=== PATIENT | female | born 1970 | race Caucasian/White ===

== ENCOUNTER → 2017-04-23 | Outpatient (CLI) | payer OTHER ==
[~2017-04-23] MED LIST: GASTROGRAFIN SOLUTION 30ML (Q9963) As Ordered ONE; ISOVUE-370 76% 100ML VIAL (Q9967) As Ordered ONE
--- NOTE | 2017-04-24 07:48 | REP ---
CT OF THE ABDOMEN AND PELVIS WITH CONTRAST: CLINICAL: Abdominal pain with history of gastroesophageal reflux. TECHNIQUE: Axial contrast enhanced images from the lung bases to the pubic symphysis using oral (per protocol) and 100 mL Isovue 370 intravenous contrast material with coronal and sagittal reformations. FINDINGS: Lung bases are clear. Visualized heart and pericardium normal. Liver, spleen, pancreas, gallbladder, bilateral adrenal glands and kidneys are normal. The enteric system is without obstruction or acute inflammatory process. The pelvis demonstrates normal bladder and age-appropriate uterus/adnexa. No pelvic free fluid. No adenopathy. No mass lesion. Vasculature appears normal. Surrounding musculoskeletal structures are intact. IMPRESSION: Normal CT of the abdomen and pelvis. No acute abdominal or pelvic pathology appreciated. Signed by Pedro Pablo Hodge MD 04/27/2017 07:11 A
== END ==
LOC: M RAD 04-17 13:10
PROVIDERS: ATTEND Surgery
DX: K21.9 Gastro-esophageal reflux disease without esophagitis (principal)
CPT/HCPCS: 74177; Q9963; Q9967

== ENCOUNTER 2017-06-26 10:53 | Day surgery (SDC) | payer OTHER ==
[2017-06-26] MEDS ORDERED: NEOSTIGMINE 10 MG/10 ML VIAL (J2710) (10:54)
[2017-06-26] MEDS ORDERED: LIDOCAINE 1% MDV 20ML VIAL SQ (11:15)
[2017-06-26] MEDS: LR 1,000 ML IV (11:35)
[2017-06-26 11:38] LABS: URINE PREG TEST NEGATIVE (NEGATIVE)
[2017-06-26 11:39] LABS: CONTROL LINE UCG INT CTR LINE PRESENT
[2017-06-26] MEDS ORDERED: ROCURONIUM BROMIDE 50 MG/5 ML VIAL As Ordered (11:50)
[2017-06-26] MEDS ORDERED: fentaNYL 250 MCG/5 ML INJECTION (J3010) As Ordered (11:50)
[2017-06-26] MEDS ORDERED: PROPOFOL 200 MG/20 ML VIAL As Ordered (11:50)
[2017-06-26] MEDS ORDERED: LIDOCAINE 2% INJ 100 MG/5 ML SDV (FOR ANES.) As Ordered (11:50)
[2017-06-26] MEDS ORDERED: MIDAZOLAM INJ 2 MG/2 ML VIAL (J2250) As Ordered (11:51)
[2017-06-26] MEDS: CEFAZOLIN SOD 1 GM in APPROPRIATE DILUENT 1 EA IV (13:00)
[2017-06-26] MEDS ORDERED: PHENYLephrine HCL 500 MCG/5 ML (100MCG/ML) SYRINGE (J2370) As Ordered (13:13)
[2017-06-26] MEDS ORDERED: dexameTHASONE 4 MG/ML 1ML VIAL (J1100) As Ordered (13:16)
[2017-06-26] MEDS ORDERED: ONDANSETRON 4MG/2ML VIAL (J2405) As Ordered (13:22)
[2017-06-26] MEDS ORDERED: NEOSTIGMINE 10 MG/10 ML VIAL (J2710) As Ordered (13:22)
[2017-06-26] MEDS ORDERED: GLYCOPYRROLATE INJ 0.2 MG/ML 2 ML VIAL As Ordered ×2 (13:22)
[2017-06-26] MEDS ORDERED: ePHEDrine INJ 50 MG/ML VIAL As Ordered (13:30)
[2017-06-26] MEDS: LIDOCAINE W/EPINEPHRINE 1% 20ML VIAL As Ordered (13:55)
[2017-06-26] MEDS: BUPIVACAINE HCL 0.25% 30 ML VIAL As Ordered (13:55)
[2017-06-26] MEDS ORDERED: fentaNYL 100 MCG/2 ML INJECTION (J3010) As Ordered (14:23)
[2017-06-26] MEDS ORDERED: PERCOCET 5MG/325MG TAB As Ordered (14:23)
[2017-06-26] MEDS: fentaNYL 100 MCG/2 ML INJECTION (J3010) IV ×4 (14:25→14:49)
[2017-06-26] MEDS ORDERED: MORPHINE 2 MG/ML 1ML SYRINGE (J2270) IV (14:30)
[2017-06-26] MEDS: PERCOCET 5MG/325MG TAB PO ×2 (14:30→14:59)
[2017-06-26] MEDS ORDERED: LR 1,000 ML IV ×2 (14:30→14:45)
[2017-06-26] MEDS ORDERED: ONDANSETRON 4MG/2ML VIAL (J2405) IV ×2 (14:30→14:45)
[2017-06-26] MEDS ORDERED: NORCO, ANEXSIA 5/325MG TABLET (HYDROcodone/ACETAMINOPHEN) PO (14:30)
[2017-06-26] MEDS ORDERED: KETOROLAC 30 MG/ML VIAL (J1885) IV (14:30)
== END 2017-06-26 16:12 | disposition home or self-care (01) ==
LOC: M SDC 10:53
DX: K82.8 Other specified diseases of gallbladder (principal); K21.9 Gastro-esophageal reflux disease without esophagitis; J45.909 Unspecified asthma, uncomplicated; K58.9 Irritable bowel syndrome, unspecified; S91.309D Unspecified open wound, unspecified foot, subsequent encounter; L70.0 Acne vulgaris; R51 Headache; Z88.1 Allergy status to other antibiotic agents; Z88.6 Allergy status to analgesic agent; Z79.899 Other long term (current) drug therapy; Z86.19 Personal history of other infectious and parasitic diseases; X58.XXXD Exposure to other specified factors, subsequent encounter; Y93.89 Activity, other specified; Y92.89 Other specified places as the place of occurrence of the external cause; Y99.8 Other external cause status
CPT/HCPCS: 47562

== ENCOUNTER 2025-04-09 09:30 | Day surgery (SDC) | payer OTHER ==
[~2025-04-09] VITALS: Ht 154.9 cm; Wt 57.3 kg
[~2025-04-09 09:30] MED LIST changes: +ATOR1TAB19 PO; +BENZ5GEL13 TOP; +BLAC1CAP2 PO; +BREO1INH INH; +CLAR10CA3 PO; +CYAN500T14 PO; +DICY20TA20; +ERYT2PAD2; +FLOR250C PO; +FLUT12HF2 IH; +FLUTISP; -GASTROGRAFIN SOLUTION 30ML (Q9963) As Ordered ONE; +IRON27TA2 PO; -ISOVUE-370 76% 100ML VIAL (Q9967) As Ordered ONE; +L-LY500T23 PO; +LARI1TAB5 PO; +LEVOTAB10 PO; +MELO7.5T7; +MONT-5 PO; +MULT1TAB10 PO; +POTA-149 PO; +PROBCAP14 PO; +THERTAB52 PO; +VALA500T5 PO; +VENTAER; +VITA100067 PO; +VITA100093 PO; +[UNRECOGNIZED DRUG - OTHER] PO
[2025-04-09] MEDS ORDERED: LR 1,000 ML IV SCH (11:15)
[2025-04-09] MEDS ORDERED: dexAMETHasone 4 MG/ML 1 ML VIAL As Ordered ONE (13:00)
[2025-04-09] MEDS ORDERED: ONDANSETRON 4MG/2ML VIAL As Ordered ONE (13:00)
[2025-04-09] MEDS ORDERED: LIDOCAINE 2% 100 MG/5 ML SDV (FOR ANES.) As Ordered ONE (13:00)
[2025-04-09] MEDS ORDERED: ROCURONIUM BROMIDE 50MG/5ML VIAL As Ordered ONE (13:00)
[2025-04-09] MEDS ORDERED: ACETAMINOPHEN 1000MG/100ML IV BAG As Ordered ONE (13:00)
[2025-04-09] MEDS ORDERED: MIDAZOLAM INJ 2 MG/2 ML VIAL As Ordered ONE (13:00)
[2025-04-09] MEDS: OXYMETAZOLINE 0.05% NASAL SPRAY As Ordered ONE (13:00)
[2025-04-09] MEDS ORDERED: SUGAMMADEX SODIUM 200 MG/2 ML VIAL As Ordered ONE (13:12)
[2025-04-09] MEDS ORDERED: traMADol 50 MG TAB PO ONE (13:20)
[2025-04-09] MEDS ORDERED: ONDANSETRON 4MG/2ML VIAL IV PRN ×2 (13:20→16:15)
[2025-04-09] MEDS ORDERED: HYDROMORPHONE HCL 0.5 MG/0.5 ML SYRINGE IV PRN (13:20)
[2025-04-09 14:24] VITALS: BP 138/75; TEMP 97.3; O2SAT 98
== END 2025-04-09 14:28 | disposition home or self-care (01) ==
LOC: M SDC 09:30
PROVIDERS: ATTEND Otolaryngology
DX: J38.1 Polyp of vocal cord and larynx (principal); J38.2 Nodules of vocal cords; J38.3 Other diseases of vocal cords; E78.00 Pure hypercholesterolemia, unspecified; K21.9 Gastro-esophageal reflux disease without esophagitis; Z79.899 Other long term (current) drug therapy; J45.909 Unspecified asthma, uncomplicated; Z88.8 Allergy status to other drugs, medicaments and biological substances; Z88.1 Allergy status to other antibiotic agents; R49.0 Dysphonia; K58.9 Irritable bowel syndrome, unspecified
CPT/HCPCS: 31536; 88305; 93005; J0131; J1100; J2250; J2405; J3010